=== PATIENT | female | born 1950 | race Caucasian/White ===

== ENCOUNTER 2016-08-04 08:11 | Inpatient (IN) | payer MEDICARE, OTHER ==
[~2016-08-04] VITALS: Ht 153.7 cm; Wt 63.0 kg
[2016-08-04] MEDS ORDERED: MULT1CHW70 PO (08:40)
[2016-08-04] MEDS ORDERED: OMEG5CAP PO (08:40)
[2016-08-04] MEDS ORDERED: PREV10CA PO (08:40)
[2016-08-04] MEDS ORDERED: CALC1CHW7 CHEW (08:40)
[2016-08-04] MEDS ORDERED: CHOL1CHW5 CHEW (08:40)
[2016-08-04] MEDS ORDERED: MAGN250T2 PO (08:40)
[2016-08-04] MEDS ORDERED: DOCO1CAP2 PO (08:40)
[2016-08-04] MEDS ORDERED: MULTCAP11 PO (08:40)
[2016-08-04] MEDS ORDERED: EVIS60TA PO (08:40)
[2016-08-04] MEDS ORDERED: VITATAB11 PO (08:40)
[2016-08-04] MEDS ORDERED: CALC500T35 (08:40)
[2016-08-14] MEDS ORDERED: GENTAMICIN SULFATE 80 MG/2 ML VIAL ONE (08:06)
[2016-08-14 08:28] VITALS: BP 128/72; PULSE 62; RESP 18; TEMP 98.3; O2SAT 98
[2016-08-14] MEDS ORDERED: METOPROLOL TARTRATE 25 MG TAB PO PRN (08:30)
[2016-08-14] MEDS ORDERED: ceFAZolin 2 GM PREMIX 50 ML IV SCH (08:30)
[2016-08-14] MEDS ORDERED: SODIUM CHLORIDE 0.9% IV SCH ×2 (08:30→10:30)
[2016-08-14] MEDS ORDERED: INSULIN HUMAN REGULAR 1,000 UNITS/10 ML VIAL SQ PRN (08:30)
[2016-08-14] MEDS: SODIUM CHLORID 0.9% 500 ML IV SCH ×2 (08:30→23:33)
[2016-08-14] MEDS ORDERED: TRANEXAMIC ACID IV SCH ×2 (08:30→10:30)
[2016-08-14] MEDS ORDERED: EXPAREL PERI-ARTICULAR INJECTION (TOTAL VOL. 100 ML) P-ARTICULR SCH ×2 (08:30)
[2016-08-14] MEDS: CHLORHEXIDINE GLUCONATE 4% SOLN 120 ML BTL TOP SCH (08:30)
[2016-08-14] MEDS: LACTATED RINGER'S 1000 ML IV SCH (08:30)
[2016-08-14] MEDS ORDERED: DEXAMETHASONE SOD PHOS 4 MG/ML VIAL ONE (09:38)
[2016-08-14] MEDS ORDERED: MIDAZOLAM HCL 5 MG/5 ML VIAL ONE (09:38)
[2016-08-14] MEDS ORDERED: FAMOTIDINE 20 MG/2 ML VIAL ONE (09:38)
[2016-08-14] MEDS ORDERED: MAGNESIUM HYDROXIDE SUSP 30 ML CUP PO PRN (10:00)
[2016-08-14] MEDS ORDERED: MORPHINE SULFATE 4 MG/ML INJ IV PUSH PRN (10:00)
[2016-08-14] MEDS ORDERED: SODIUM CHLORIDE 0.9% FLUSH 5 ML FLUSH IVF PRN (10:00)
[2016-08-14] MEDS ORDERED: ACETAMINOPHEN/HYDROcodone 325 MG/7.5 MG TAB PO PRN ×2 (10:00)
[2016-08-14] MEDS ORDERED: ZOLPIDEM TARTRATE 5 MG TAB PO PRN (10:00)
[2016-08-14] MEDS ORDERED: TRANEXAMIC ACID INJ 0 MG in SODIUM CHLORIDE 0.9% INJ 100 ML IV SCH (10:00)
[2016-08-14] MEDS ORDERED: Post-op Orders (for Pharmacy) MISC XX ONE (10:00)
[2016-08-14] MEDS ORDERED: ONDANSETRON HCL 4 MG/2 ML VIAL IVP PRN (10:00)
[2016-08-14] MEDS ORDERED: ACETAMINOPHEN 1000 MG/100 ML VIAL IV ONE (10:03)
[2016-08-14] MEDS ORDERED: PROPOFOL 200 MG/20 ML AMP IV ONE (10:18)
[2016-08-14] MEDS ORDERED: LACTATED RINGER'S 1000 ML INJ 1,000 ML IV ONE (10:18)
[2016-08-14] MEDS ORDERED: PHENYLEPH/NS 1000 MCG/10 ML SYR IV ONE (10:18)
[2016-08-14] MEDS ORDERED: ePHEDrine/NS 25 MG/5 ML SYR IV ONE (10:18)
[2016-08-14] MEDS ORDERED: BUPIVACAINE HCL PF 0.25% 30 ML VIAL NB ONE (10:21)
[2016-08-14] MEDS ORDERED: GENTAMICIN SULFATE 80 MG/2 ML VIAL IRRIGATION ONE (11:22)
[2016-08-14] MEDS: LACTATED RINGER'S 1000 ML INJ 1,000 ML IV SCH ×2 (13:00→23:30)
[2016-08-14] MEDS ORDERED: MIDAZOLAM HCL 2 MG/2 ML VIAL ONE (13:00)
--- NOTE | 2016-08-14 14:13 | RADRPT ---
EXAM DATE/TIME: 08/14/2016 13:16 [place] COMPARISON: No previous studies available for comparison. INDICATIONS : Post OP left knee MEDICAL HISTORY : None. SURGICAL HISTORY : None. ENCOUNTER: Initial ACUITY: 1 day PAIN SCORE: 0/10 LOCATION: Left knee FINDINGS: The examination demonstrates a total knee arthroplasty. The orthopedic hardware is in excellent posit ion. There is no evidence of fracture. There is a surgical drain in place.. CONCLUSION: Orthopedic hardware in good position. Ayden Crawford MD on August 14, 2016 at 14:11 Board Certified Radiologist. This report was verified electronically.
[2016-08-14] MEDS: KETOROLAC TROMETHAMINE 30 MG/ML (IVP) VIAL IVP SCH ×2 (15:22→20:43)
[2016-08-14 16:15] VITALS: BP 116/66; PULSE 84; RESP 18; TEMP 96.9; O2SAT 96
[2016-08-14 20:35] VITALS: BP 108/55; PULSE 82; RESP 16; TEMP 97.4; O2SAT 93
[2016-08-14] MEDS: SODIUM CHLORIDE 0.9% FLUSH 5 ML FLUSH IVF SCH (20:43)
[2016-08-14] MEDS: ASPIRIN EC 81 MG TABEC PO SCH (20:43)
--- NOTE | 2016-08-14 23:02 | PD.CONS ---
HPI Service [facility] Hospitalists Consult Requested By Orthopedic surgery. Reason for Consult Medical management. Primary Care Physician Helio Aguirre MD Diagnoses: History of Present Illness Ms. Devlin is a pleasant 66 year old female with a history of osteoporosis, osteoarthritis who underwent left total knee arthroplasty today. Hospitalist was consulted for medical management. At the time of this interview, patient denies any acute concerns. Her pain is well controlled. Denies any fever, chills. Denies any chest pain, shortness of breath. No changes in bowel or bladder habits. Review of Systems ROS Limitations: Other (Negative except as noted in the HPI. ) Past Family Social History Allergies: Coded Allergies: No Known Allergies (Verified , 08/14/16) Past Medical History Glaucoma Carpal tunnel syndrome Osteoarthritis Osteoporosis. Past Surgical History Carpal tunnel surgery on the right hand. Laser surgery for Glaucoma. Reported Medications Raloxifene 60mg Qday Multivitamin, Prevagen, DHA, [place] 3 FA Calcium carbonate-cholecalciferol 600-400mg Daily Magnesium 250mg Qday Oyster shell Vitamin B complex. Vitamin D3 4000 units daily. Family History Father - bladder cancer. from lung cancer Mother - HTN, DM. Physical Exam Vital Signs Vital Signs Date Time Temp Pulse Resp B/P Pulse Ox O2 Delivery O2 Flow Rate FiO2 08/14/16 16:15 96.9 84 18 116/66 96 08/14/16 15:40 97.6 75 16 128/76 100 Room Air 08/14/16 15:15 69 15 129/79 100 Nasal Cannula 2 08/14/16 14:45 70 17 133/77 100 Nasal Cannula 2 08/14/16 14:15 62 17 127/75 100 Nasal Cannula 2 08/14/16 14:00 60 16 125/75 100 Nasal Cannula 2 08/14/16 13:45 66 15 111/48 100 Nasal Cannula 2 08/14/16 13:15 72 15 115/60 100 Nasal Cannula 2 08/14/16 13:00 74 16 104/55 98 Nasal Cannula 2 08/14/16 12:54 97.4 79 15 109/60 98 Nasal Cannula 2 08/14/16 08:28 98.3 62 18 128/72 98 Physical Exam GENERAL: This is a well-nourished, well-developed patient, in no apparent distress. SKIN: No rashes, ecchymoses or lesions. Warm and dry. HEAD: Atraumatic. Normocephalic. No temporal or scalp tenderness. EYES: Pupils equal round and reactive. No injection or drainage. ENT: Nose without bleeding, purulent drainage or septal hematoma. Airway patent. NECK: Trachea midline. No lymphadenopathy. Supple, nontender, no meningeal signs. CARDIOVASCULAR: Regular rate and rhythm without murmurs, gallops, or rubs. No JVD. RESPIRATORY: Clear to auscultation. Breath sounds equal bilaterally. No wheezes , rales, or rhonchi. GASTROINTESTINAL: Abdomen soft, non-tender, nondistended. No guarding. MUSCULOSKELETAL: Extremities without clubbing, cyanosis, or edema. s/p Left TKA. Able to move all toes. NEUROLOGICAL: Awake and alert. Cranial nerves II through XII intact. No focal neurological deficits. Normal speech. Laboratory Laboratory Tests Test 08/14/16 08:12 Blood Type A POSITIVE Antibody Screen NEGATIVE Blood Bank Comment Imaging Last Impressions Knee X-Ray 08/14/16 0000 Signed Impressions: Service Date/Time: Sunday, August 14, 2016 13:16 - CONCLUSION: Orthopedic hardware in good position. Ayden Crawford MD Assessment and Plan Problem List: (1) Primary osteoarthritis of left knee ICD Code: M17.12 Status: Acute (2) Osteoporosis ICD Code: M81.0 Status: Acute (3) Hx of glaucoma ICD Code: Z86.69 Status: Acute Assessment and Plan Ms. Devlin is a pleasant 66 year old female with a history of osteoarthritis who underwent left total knee arthroplasty today. - Osteoarthritis of the left knee - s/p Left total knee arthroplasty - Continue Toradol 15mg IV Q6hrs. Patient reports good pain control with Toradol. - [place] PRN - Colace, Milk of Mag for bowel regimen. - Currently on Aspirin 81mg BID. - Osteoporosis - Continue Raloxifene 60mg Qday - Continue Calcium, Vitamin D supplements. - Insomnia - Zolpidem 5mg PRN Full code. Anticoagulation per orthopedic surgery. Thank you for the consult. We will continue to follow this patient with you. Karishma Chaudhari DO Aug 14, 2016 23:02
[2016-08-15] VITALS (8 sets, daily range): BP systolic 100–125; BP diastolic 54–63; PULSE 69–85; RESP 16; TEMP 96.6–97.7; O2SAT 94–98
[2016-08-15] MEDS: KETOROLAC TROMETHAMINE 30 MG/ML (IVP) VIAL IVP SCH ×4 (04:29→22:16)
--- NOTE | 2016-08-15 06:37 | PD.ORT.PN ---
Subjective Post Op Day #: 1 Range of Motion -5 to 80 degrees. Distance Walked 30 feet; then 80 feet. Objective Vitals Vital Signs Date Time Temp Pulse Resp B/P Pulse Ox O2 Delivery O2 Flow Rate FiO2 08/15/16 05:06 96 08/15/16 04:35 97.1 80 16 100/58 97 08/15/16 00:25 97.5 74 16 113/63 97 08/14/16 20:35 97.4 82 16 108/55 93 08/14/16 16:15 96.9 84 18 116/66 96 08/14/16 15:40 97.6 75 16 128/76 100 Room Air 08/14/16 15:15 69 15 129/79 100 Nasal Cannula 2 08/14/16 14:45 70 17 133/77 100 Nasal Cannula 2 08/14/16 14:15 62 17 127/75 100 Nasal Cannula 2 08/14/16 14:00 60 16 125/75 100 Nasal Cannula 2 08/14/16 13:45 66 15 111/48 100 Nasal Cannula 2 08/14/16 13:15 72 15 115/60 100 Nasal Cannula 2 08/14/16 13:00 74 16 104/55 98 Nasal Cannula 2 08/14/16 12:54 97.4 79 15 109/60 98 Nasal Cannula 2 08/14/16 08:28 98.3 62 18 128/72 98 I/O 08/14/16 08/14/16 08/14/16 08/15/16 08/15/16 08/15/16 07:00 15:00 23:00 07:00 15:00 23:00 Intake Total 1200 ml 805 ml Output Total 250 ml 260 ml 180 ml Balance 950 ml 545 ml -180 ml Intake Oral 480 ml IV Total 325 ml Other 1200 ml Output Urine Total 0 ml 0 ml Drainage Total 260 ml 180 ml Estimated Blood Loss 250 ml # Voids 1 # Bowel Movements 0 Imaging Knee x-ray looks good. Last 72 hours Impressions Knee X-Ray 08/14/16 0000 Signed Impressions: Service Date/Time: Sunday, August 14, 2016 13:16 - CONCLUSION: Orthopedic hardware in good position. Ayden Crawford MD Objective Remarks She is resting comfortably, supine in bed in the [facility]. The neurovascular status is intact. The dressing is dry and intact. Assessment & Plan Ortho Post Op Day #: 1 Problem List: (1) Status post total left knee replacement Assessment and Plan Condition: Good. Orthopaedically stable. DVT prophylaxis: JACQUELINE stockings, sequentials, ASA. Discharge plans: Home with [facility]. Has appointment. Janice Aguila MD (Charles) Aug 15, 2016 06:37
[2016-08-15 07:10] LABS: HEMATOCRIT 30.4 % (35.0-46.0); REVIEW FLAG FINAL
[2016-08-15] MEDS: LACTATED RINGER'S 1000 ML IV SCH (08:30)
[2016-08-15] MEDS: CHLORHEXIDINE GLUCONATE 4% SOLN 120 ML BTL TOP SCH (08:30)
[2016-08-15] MEDS ORDERED: NON-FORMULARY DRUG (Omega-3 Fatty Acids (Fish Oil 1200 mg) 1 CAP) PO SCH (09:00)
[2016-08-15] MEDS ORDERED: APOAEQUORIN PO SCH (09:00)
[2016-08-15] MEDS ORDERED: MULTIPLE VITAMINS PO SCH (09:00)
[2016-08-15] MEDS ORDERED: B COMPLEX VITAMINS PO SCH (09:00)
[2016-08-15] MEDS ORDERED: MINERALS PO SCH (09:00)
[2016-08-15] MEDS ORDERED: DOCOSAHEXAENOIC ACID PO SCH (09:00)
[2016-08-15] MEDS: SODIUM CHLORIDE 0.9% FLUSH 5 ML FLUSH IVF SCH ×2 (09:14→22:16)
[2016-08-15] MEDS: MULTIVITAMIN-OPHTHALMIC 1 TAB PO SCH (09:14)
[2016-08-15] MEDS: ASPIRIN EC 81 MG TABEC PO SCH ×2 (09:14→22:15)
[2016-08-15] MEDS: RALOXIFENE HCL 60 MG TAB PO SCH (09:14)
[2016-08-15] MEDS: CALCIUM/VITAMIN D 250 MG/125 U TAB PO SCH (09:14)
[2016-08-15] MEDS: CHOLECALCIFEROL (VIT D3) 1000 UNIT TAB PO SCH (09:15)
--- NOTE | 2016-08-15 10:04 | HHI.FF ---
Face to Face Verification Diagnosis: (1) Primary osteoarthritis of left knee (2) Osteoporosis (3) Hx of glaucoma Physical Therapy Order: Evaluate and Treat, Improve ambulation, Strength and gait training Home Health Nursing Order: Medical education Signs/symptoms of disease process Wound care and dressing changes Nursing assessment with vital signs I have seen patient Krystyna Devlin on 08/15/16. My clinical findings support the need for the requested home health care services because: Ltd mobility - disease progression Limited ability to care for self High risk of falls Infection w/ risk of complications I certify that my clinical findings support that this patient is homebound because: Post-op weakness Unsteady gait/balance Unsafe to leave home unassisted Unable to use public transportation Karishma Chaudhari DO Aug 15, 2016 10:04 am
[2016-08-15] MEDS ORDERED: TRAM50TA PO (11:29)
[2016-08-15] MEDS: LACTATED RINGER'S 1000 ML INJ 1,000 ML IV SCH (12:00)
[2016-08-15] MEDS: MAGNESIUM OXIDE 400 MG TAB PO SCH (13:22)
[2016-08-15] MEDS: MAGNESIUM HYDROXIDE SUSP 30 ML CUP PO SCH ×2 (13:22→22:15)
--- NOTE | 2016-08-15 17:05 | HHI.PR ---
Subjective Remarks Follow-up for osteoarthritis of the left knee status post left total knee arthroplasty. Patient is currently doing well. No chest pain, shortness of breath, fever or chills. She requests pain medication on discharge. She prefers no strong narcotics. Objective Vitals Vital Signs Date Time Temp Pulse Resp B/P Pulse Ox O2 Delivery O2 Flow Rate FiO2 08/15/16 11:34 97 21 08/15/16 07:40 97.6 85 16 125/61 95 08/15/16 05:06 96 08/15/16 04:35 97.1 80 16 100/58 97 08/15/16 00:25 97.5 74 16 113/63 97 08/14/16 20:35 97.4 82 16 108/55 93 I/O 08/14/16 08/14/16 08/14/16 08/15/16 08/15/16 08/15/16 07:00 15:00 23:00 07:00 15:00 23:00 Intake Total 1200 ml 805 ml 480 ml Output Total 250 ml 260 ml 180 ml Balance 950 ml 545 ml 300 ml Intake Oral 480 ml 480 ml IV Total 325 ml Other 1200 ml Output Urine Total 0 ml 0 ml Drainage Total 260 ml 180 ml Estimated Blood Loss 250 ml # Voids 1 2 # Bowel Movements 0 0 Result Diagram: 08/15/16 0640 Imaging Last Impressions Knee X-Ray 08/14/16 0000 Signed Impressions: Service Date/Time: Sunday, August 14, 2016 13:16 - CONCLUSION: Orthopedic hardware in good position. Ayden Crawford MD Objective Remarks GENERAL: Alert, oriented 3. SKIN: Warm and dry. HEAD: Normocephalic. EYES: No scleral icterus. No injection or drainage. NECK: Supple, trachea midline. No JVD or lymphadenopathy. CARDIOVASCULAR: Regular rate and rhythm without murmurs, gallops, or rubs. RESPIRATORY: Breath sounds equal bilaterally. No accessory muscle use. GASTROINTESTINAL: Abdomen soft, non-tender, nondistended. MUSCULOSKELETAL: No cyanosis, or edema. Able to move all toes. BACK: Nontender without obvious deformity. No CVA tenderness. Procedures Left total knee arthroplasty 08/14/2016. A/P Problem List: (1) Primary osteoarthritis of left knee ICD Code: M17.12 Status: Acute (2) Osteoporosis ICD Code: M81.0 Status: Acute (3) Hx of glaucoma ICD Code: Z86.69 Status: Acute Assessment and Plan Ms. Devlin is a pleasant 66 year old female with a history of osteoarthritis who underwent left total knee arthroplasty today. - Osteoarthritis of the left knee - s/p Left total knee arthroplasty - Continue Toradol 15mg IV Q6hrs. Patient reports good pain control with Toradol. - [place] PRN - Colace, Milk of Mag for bowel regimen. - Currently on Aspirin 81mg BID. - Tramadol when necessary on discharge. Rx placed in the chart. - Osteoporosis - Continue Raloxifene 60mg Qday - Continue Calcium, Vitamin D supplements. - Insomnia - Zolpidem 5mg PRN Full code. On aspirin BID. Karishma Chaudhari DO Aug 15, 2016 5:05 pm
[2016-08-15] MEDS ORDERED: SENNOSIDES 8.6 MG TAB PO SCH (21:00)
--- NOTE | 2016-08-15 22:00 | MP ---
cc: Steve RICHARDSON. DATE OF SURGERY: 08/14/2016 PREOPERATIVE DIAGNOSIS: Primary osteoarthritis left knee POSTOPERATIVE DIAGNOSIS Primary osteoarthritis left knee OPERATION PERFORMED Left total knee arthroplasty with William Triathlon prosthesis (uncemented). SURGEON Janice Richardson MD FLANGING ROLL OPERATOR: Alberto Jarrett CSFA ANESTHESIA Spinal with supplemental, adductor canal block and local. INDICATIONS AND FINDINGS This 66-year-old woman has had longstanding arthritis in her left knee that has limited her activities and causes significant pain. She can walk up to a mile and has to stop because of pain. She has pain throughout the entire time with weightbearing. She has not responded to conservative measures. She has difficulty standing from a seated position and using stairs. She has been treated with anti-inflammatory agents, analgesics, activity modification, exercise, ambulatory aids and even stem cell injections. She has not responded adequately with these techniques. Physical findings showed significant genu varum with palpable osteophytes in the medial and lateral compartments. There is medial laxity to a significant degree and crepitation on motion. X-rays show severe osteoarthritis with loss of articular cartilage to [id number] in the medial compartment with there being large medial and patellofemoral osteophytes and some lateral osteophytes. There is calcification in the lateral meniscus. There is also subchondral sclerosis. Operative findings showed severe osteoarthritis in the knee with loss of articular cartilage to [id number] in the medial compartment with fairly significant osteophytes in the medial lateral and patellofemoral compartments. The articular surfaces were irregular. There was calcification in the soft tissues consistent with chondrocalcinosis. The prosthesis used was a Haworth Triathlon prosthesis with the femur being a porous coated cementless prosthesis, size 3 cruciate retaining. The tibia being a Tritanium baseplate size 4 with an 11-mm cruciate retaining spacer of X3 polyethylene and a Tritanium patella size 32 asymmetric. PROCEDURE The patient had an adductor canal block carried out preoperatively. She was transferred to the clean-air operating suite where she had a spinal anesthetic administered. She was placed in a supine position on the operating table with a small bolster under the left hip. A pneumatic tourniquet was applied to the left thigh. The limb was then prepped with alcohol, Hibiclens and Chloraprep and draped in the usual manner with the knee draped free. An appropriate time-out procedure was carried out. After injecting the skin with local anesthetic, an incision was then made from about three fingerbreadths above the superior and medial pole of the patella down to the tibial tubercle on the medial side. The incision was deepened through the subcutaneous tissues to the retinacular structures which were exposed medially and laterally. A medial retinacular incision was made from the superior medial pole of the patella down to the tibial tubercle. This was carried up into the quadriceps tendon splitting it longitudinally in the medial one-third. The patella was reflected. Medial and lateral dissection was carried out. The infrapatellar fat pad was debulked. The posterior surface of the patella was excised using the oscillating saw. A patella protector was applied to the posterior surface of the patella. With the knee flexed, a fenestration was made in the distal end of the femur with the appropriate drill as well as the proximal tibia for intramedullary referencing guides. The distal femoral cutting guide and jig were assembled for 5 degrees 8-mm cut and positioned in place. This was stabilized with pins. The jig was removed. The distal femoral cut was completed with the oscillating saw. Using [place]'s line and the epicondylar axis, the sizing guide was positioned in place and stabilized with pins. The size femur was determined to be a size 3. The four-in-one cutting block was positioned in place after removal of the sizing guide. Anterior and posterior cuts were then made followed by posterior and anterior chamfer cuts. The osteophytes were trimmed. Medial and lateral meniscectomies were completed. The proximal tibial cutting guide and jig were then positioned in place and stabilized with a pin for rotational alignment. The cutting block was positioned using the stylus off a high side. This appeared to be high on the medial side, therefore, this was increased to more millimeters. The cutting block was stabilized with pins. The depth of cut was verified with the spacer block. The proximal tibial cut was then completed with the oscillating saw taking care to prevent injury to the neurovascular and ligamentous structures. Local anesthesia was administered throughout the knee with Exparel. The tibial baseplate trial was checked and was appropriate for a size 4. The 11-mm spacer was inserted. The femoral component was then impacted into place and seated appropriately. The patella drill guide was positioned and patella drill holes made. This was for the 32-mm patella. A trial prosthesis was inserted. The knee was taken through a range of motion which was easily 0 degrees extension to 140 degrees of flexion. The stability was excellent in flexion and extension. The femoral drill holes were made. The femoral trial were removed. The tibial spacer was removed. The tibial punch was impacted through its guide and removed. The tibial drill guide was positioned in place and drill holes made. This was likewise removed. Cut ends of bone were cleaned with pulse lavage. The tibial baseplate was impacted into place and seated appropriately. The 11-mm spacer was inserted. This was impacted into place. The femoral component was then inserted in place and impacted into place. The patella was positioned in place and stabilized with a patella vice. The remainder of the Exparel was injected in the knee. Drains were brought out the superolateral aspect of the suprapatellar pouch. Wound closure then commenced using 0 Vicryl interrupted [id number] sutures for retinacular structures, 2-0 Vicryl interrupted simple sutures with buried knots for the subcutaneous tissues and 4-0 Monocryl continuous subcuticular closure for the skin. The wound was dressed with Steri-Strips followed by dry dressing, sterile Sof-Rol, cooling pad, further sterile Sof-Rol and Eduin bandages from the base of the toes to midthigh. The patient was transferred from the operating room to the recovery room in satisfactory condition having tolerated the procedure well. Counts were correct. Specimens none. Estimated blood loss 250 mL. MD JULIA Tomlinson/LESLI /12:41 PM /9:42 PM
[2016-08-15] MEDS: DOCUSATE SODIUM 100 MG CAP PO SCH (22:15)
[2016-08-16] VITALS: BP 116/62; PULSE 81; RESP 17; TEMP 98; O2SAT 96
[2016-08-16] MEDS: LACTATED RINGER'S 1000 ML INJ 1,000 ML IV SCH ×2 (00:30→13:00)
[2016-08-16] MEDS: KETOROLAC TROMETHAMINE 30 MG/ML (IVP) VIAL IVP SCH ×2 (03:17→08:49)
[2016-08-16 04:00] VITALS: BP 122/58; PULSE 82; RESP 16; TEMP 98.9; O2SAT 95
[2016-08-16 06:53] LABS: HEMATOCRIT 28.4 % (35.0-46.0); REVIEW FLAG FINAL
--- NOTE | 2016-08-16 07:01 | PD.ORT.PN ---
Subjective Post Op Day #: 2 Subjective Remarks She is doing well. There is not much pain. Range of Motion -6 to 94 degrees. Distance Walked 300 feet. Objective Vitals Vital Signs Date Time Temp Pulse Resp B/P Pulse Ox O2 Delivery O2 Flow Rate FiO2 08/16/16 04:00 98.9 82 16 122/58 95 08/16/16 00:00 98.0 81 17 116/62 96 08/15/16 20:00 97.7 69 16 101/60 94 08/15/16 16:05 97.5 81 16 107/61 97 08/15/16 11:34 97 21 08/15/16 11:26 96.6 78 16 106/54 98 08/15/16 07:40 97.6 85 16 125/61 95 I/O 08/15/16 08/15/16 08/15/16 08/16/16 08/16/16 08/16/16 07:00 15:00 23:00 07:00 15:00 23:00 Intake Total 480 ml 360 ml 240 ml Output Total 180 ml 170 ml Balance 300 ml 190 ml 240 ml Intake Oral 480 ml 360 ml 240 ml Drainage Total 180 ml 170 ml # Voids 2 3 1 # Bowel Movements 0 0 Result Diagram: 08/15/16 0640 Imaging Knee x-ray looks good. Last 72 hours Impressions Knee X-Ray 08/14/16 0000 Signed Impressions: Service Date/Time: Sunday, August 14, 2016 13:16 - CONCLUSION: Orthopedic hardware in good position. Ayden Crawford MD Objective Remarks She is resting comfortably, supine in bed in the [facility]. The neurovascular status is intact. The dressing is dry and intact. There is no erythema or induration. Assessment & Plan Ortho Post Op Day #: 2 Problem List: (1) Status post total left knee replacement Plan: Continue postop care and PT. Assessment and Plan Condition: Good. Orthopaedically stable. DVT prophylaxis: JACQUELINE stockings, sequentials, ASA. Discharge plans: Home with [facility]. Has appointment. Rx: Tramadol Janice Aguila MD ([place]) Aug 16, 2016 07:01
[2016-08-16 07:51] VITALS: BP 104/59; PULSE 72; RESP 16; TEMP 98.8; O2SAT 98
--- NOTE | 2016-08-16 08:15 | HHI.FF ---
Face to Face Verification Diagnosis: (1) Status post total left knee replacement Physical Therapy Gait training Knee: Total knee, Protocol: Left, Gait training, Full weight bearing Left LE Weight Bearing: WB as tolerated Left LE Range of Motion: Active ROM (AROM, AAROM, PROM, PRE. ROM goal is 0 to 135 degrees.) Nursing Nursing: Dressing changes Dressing Changes: Daily dressing change, Coverderm/Primapore I have seen patient Krystyna Devlin on 08/16/16. My clinical findings support the need for the requested home health care services because: Ltd mobility - disease progression Limited ability to care for self High risk of falls I certify that my clinical findings support that this patient is homebound because: Post-op weakness Unsteady gait/balance Unsafe to leave home unassisted Janice Aguila MD (Charles) Aug 16, 2016 08:14
[2016-08-16] MEDS ORDERED: WALKER WHEELS/F1 MIS (08:17)
[2016-08-16] MEDS ORDERED: MISC-163 (08:17)
[2016-08-16] MEDS ORDERED: ULTR50TA5 PO (08:17)
[2016-08-16] MEDS ORDERED: ASPI81TA11 PO (08:17)
[2016-08-16] MEDS: CHLORHEXIDINE GLUCONATE 4% SOLN 120 ML BTL TOP SCH (08:30)
[2016-08-16] MEDS: traMADol HCL 50 MG TAB PO PRN ×2 (08:48→13:10)
[2016-08-16] MEDS: SODIUM CHLORIDE 0.9% FLUSH 5 ML FLUSH IVF SCH (08:49)
[2016-08-16] MEDS: MAGNESIUM HYDROXIDE SUSP 30 ML CUP PO SCH (08:50)
[2016-08-16] MEDS: ASPIRIN EC 81 MG TABEC PO SCH (08:50)
[2016-08-16] MEDS: DOCUSATE SODIUM 100 MG CAP PO SCH (08:50)
[2016-08-16] MEDS: CALCIUM/VITAMIN D 250 MG/125 U TAB PO SCH (08:50)
[2016-08-16] MEDS: MULTIVITAMIN-OPHTHALMIC 1 TAB PO SCH (08:50)
[2016-08-16] MEDS: RALOXIFENE HCL 60 MG TAB PO SCH (08:50)
[2016-08-16] MEDS: CHOLECALCIFEROL (VIT D3) 1000 UNIT TAB PO SCH (08:51)
[2016-08-16 12:45] VITALS: BP 122/63; PULSE 73; RESP 16; TEMP 95.3; O2SAT 97
[2016-08-16] MEDS: MAGNESIUM OXIDE 400 MG TAB PO SCH (13:10)
--- NOTE | 2016-08-16 13:23 | HHI.PR ---
Subjective Remarks Follow-up for osteoarthritis of the left knee status post left total knee arthroplasty. Ms. Devlin is doing well. No acute concerns. She is going home today. Objective Vitals Vital Signs Date Time Temp Pulse Resp B/P Pulse Ox O2 Delivery O2 Flow Rate FiO2 08/16/16 07:51 98.8 72 16 104/59 98 08/16/16 04:00 98.9 82 16 122/58 95 08/16/16 00:00 98.0 81 17 116/62 96 08/15/16 20:00 97.7 69 16 101/60 94 08/15/16 16:05 97.5 81 16 107/61 97 I/O 08/15/16 08/15/16 08/15/16 08/16/16 08/16/16 08/16/16 07:00 15:00 23:00 07:00 15:00 23:00 Intake Total 480 ml 360 ml 240 ml 240 ml Output Total 180 ml 170 ml 80 ml 40 ml Balance 300 ml 190 ml 160 ml 200 ml Intake Oral 480 ml 360 ml 240 ml 240 ml Drainage Total 180 ml 170 ml 80 ml 40 ml # Voids 2 3 1 2 # Bowel Movements 0 0 0 Result Diagram: 08/16/16 0544 Objective Remarks GENERAL: Alert, oriented 3. SKIN: Warm and dry. HEAD: Normocephalic. EYES: No scleral icterus. No injection or drainage. NECK: Supple, trachea midline. No JVD or lymphadenopathy. CARDIOVASCULAR: Regular rate and rhythm without murmurs, gallops, or rubs. RESPIRATORY: Breath sounds equal bilaterally. No accessory muscle use. GASTROINTESTINAL: Abdomen soft, non-tender, nondistended. MUSCULOSKELETAL: No cyanosis, or edema. Able to move all toes. BACK: Nontender without obvious deformity. No CVA tenderness. Procedures Left total knee arthroplasty 08/14/2016. A/P Problem List: (1) Primary osteoarthritis of left knee ICD Code: M17.12 Status: Acute (2) Osteoporosis ICD Code: M81.0 Status: Acute (3) Hx of glaucoma ICD Code: Z86.69 Status: Acute Assessment and Plan Ms. Devlin is a pleasant 66 year old female with a history of osteoarthritis who underwent left total knee arthroplasty - Osteoarthritis of the left knee - s/p Left total knee arthroplasty - Continue Toradol 15mg IV Q6hrs. Patient reports good pain control with Toradol. - [place] PRN - Colace, Milk of Mag for bowel regimen. - Currently on Aspirin 81mg BID. - Tramadol when necessary on discharge. - Osteoporosis - Continue Raloxifene 60mg Qday - Continue Calcium, Vitamin D supplements. - Insomnia - Zolpidem 5mg PRN Full code. On aspirin BID. Patient is being discharged today. Karishma Chaudhari DO Aug 16, 2016 13:23
== END 2016-08-16 14:38 | disposition home health service (06) | DRG 470 ==
LOC: HSDI 08-14 07:23 → N06A 08-14 16:00
PROVIDERS: ADMIT Orthopaedic Surgery; ATTEND Orthopaedic Surgery
PROC: 0QRF0JZ Replacement of Left Patella with Synthetic Substitute, Open Approach (ICD-10-PCS; 2016-08-14)
PROC: 3E0T3CZ (ICD-10-PCS; 2016-08-14)
PROC: 0SRD0JA Replacement of Left Knee Joint with Synthetic Substitute, Uncemented, Open Approach (ICD-10-PCS; principal; 2016-08-14 10:14)
DX: M17.12 Unilateral primary osteoarthritis, left knee (principal); M11.262 Other chondrocalcinosis, left knee; M25.762 Osteophyte, left knee; M21.162 Varus deformity, not elsewhere classified, left knee; M81.0 Age-related osteoporosis without current pathological fracture; G47.00 Insomnia, unspecified; H40.9 Unspecified glaucoma
CPT/HCPCS: 73560; 85014; 85018; 86850; 86900; 86901; 94150; C1776; C9290; J0131; J0690; J1100; J1580; J1885; J2250; J2370; J7120

== ENCOUNTER → 2016-08-04 | Outpatient (CLI) | payer MEDICARE, OTHER ==
[~2016-08-04] MED LIST: ASPI81TA11 PO; CALC1CHW7 CHEW; CALC500T35; CHOL1CHW5 CHEW; DOCO1CAP2 PO; EVIS60TA PO; MAGN250T2 PO; MISC-163; MULT1CHW70 PO; MULTCAP11 PO; OMEG5CAP PO; PREV10CA PO; TRAM50TA PO; ULTR50TA5 PO; VITATAB11 PO; WALKER WHEELS/F1 MIS
[2016-08-04 09:09] LABS: MEAN CELL VOLUME 96.5 FL (80.0-100.0); MEAN CORPUSCULAR HEMOGLOBIN 32.4 PG (27.0-34.0); MEAN CORPUSCULAR HGB CONC 33.6 % (32.0-36.0); PLATELET COUNT 285 TH/MM3 (150-450); RED BLOOD COUNT 4.46 MIL/MM3 (4.00-5.30); RED CELL DISTRIBUTION WIDTH 12.6 % (11.6-17.2); REVIEW FLAG FINAL
[2016-08-04 09:10] LABS: APTT (PATIENT) 24.5 SEC (24.3-30.1); PROTHROMBIN TIME - PATIENT 10.9 SEC (9.8-11.6)
[2016-08-04 09:19] LABS: BICARBONATE 30.7 MEQ/L (21.0-32.0); POTASSIUM 4.2 MEQ/L (3.5-5.1)
[2016-08-04 09:57] LABS: BACTERIA, URINE RARE /hpf; BLOOD, URINE NEG (NEG); COMMENT (UR) CATH-CULTURE IND; CULTURE IF INDICATED CATH CULTURE IND; GLUCOSE,URINE NEG (NEG); HYALINE CAST, URINE 6 /lpf (RARE); KETONE, URINE NEG (NEG); MUCUS URINE FEW /lpf (OCC); NITRITE,URINE NEG (NEG); SQUAMOUS EPITHELIAL CELL URINE <1 /hpf (0-5); URINE COLOR YELLOW (YELLW/STRAW)
--- NOTE | 2016-08-06 12:30 | EKG ---
Date Performed: 08/04/2016 Time Performed: 09:02:08 PTAGE: 66 years EKG: SINUS BRADYCARDIA POSSIBLE LEFT ATRIAL ENLARGEMENT Since previous tracing, no significant c hange noted BORDERLINE ECG PREVIOUS TRACING : 04/13/2005 [id number] DOCTOR: Howard Kirkpatrick Interpretating Date/Time 08/06/2016 12:28:56
== END ==
LOC: CPRE 08:06
PROVIDERS: ATTEND Orthopaedic Surgery
DX: Z01.812 Encounter for preprocedural laboratory examination (principal); Z01.810 Encounter for preprocedural cardiovascular examination; M79.609 Pain in unspecified limb; I10 Essential (primary) hypertension; R00.1 Bradycardia, unspecified
CPT/HCPCS: 36415; 80048; 81001; 85027; 85610; 85730; 87086; 93005